=== PATIENT | female | born 1945 | race Caucasian/White ===

== ENCOUNTER 2017-03-10 09:21 | Emergency (ER) | payer MEDICARE, BC ==
[2017-03-10] MEDS ORDERED: SODIUM CHLORIDE 0.9% 500 ML IV STA (10:23)
[2017-03-10] MEDS ORDERED: IPRATROPIUM-ALBUTEROL 3 ML NEB INHALATION STA (10:23)
[2017-03-10] MEDS ORDERED: ONDANSETRON 4 MG/2 ML VIAL IVP STA (10:24)
[2017-03-10] MEDS ORDERED: SODIUM CHLORIDE 0.9% 1,000 ML IV STA (10:24)
[2017-03-10] MEDS ORDERED: FAMOTIDINE 20 MG/2 ML VIAL IV STA (10:24)
[2017-03-10] MEDS ORDERED: ACETAMINOPHEN IV (For NPO) 1,000 MG in EMPTY BAG 1 BAG IVPB ONE (10:25)
--- NOTE | 2017-03-10 10:54 | ED ---
URI HPI - General Chief Complaint: Upper Respiratory Infection Stated Complaint: nausea, cough Time Seen by Provider: 03/10/17 10:07 Source: patient Mode of arrival: wheelchair Limitations: no limitations - History of Present Illness Initial Comments: This 71-year-old white female presents with the complaint of a cough. She apparently has had this for approximately 2 weeks but it seems to be getting worse. She denies any actual fever. She denies any production. She states that her sinuses seem very congested and it feels like she has a postnasal drip. She denies any shortness of breath or chest pain. She also has been vomiting over the past couple of days and has some mild upper abdominal pain. She has not taken any medications for this as of yet. She states that it helps if she goes and a steamy shower and this seems to help her sinuses. She feels very weak. No other complaints or modifying factors. - Related Data Home Medications Medication Instructions Recorded Confirmed Hydrochlorothiazide 12.5 mg PO DAILY 03/10/17 03/10/17 Lisinopril [Prinivil] 10 mg PO DAILY 03/10/17 03/10/17 Multivitamins, Thera [Multivitamin 1 tab PO DAILY 03/10/17 03/10/17 (formulary)] Potassium Chloride ER [K-Dur 10] 10 meq PO DAILY 03/10/17 03/10/17 Pravastatin Sodium [Pravachol] 10 mg PO MOWEFR 03/10/17 03/10/17 cycloSPORINE 0.05% OPHTH SOLN 1 drop BOTH EYES BID 03/10/17 03/10/17 [Restasis] Previous Rx's Medication Instructions Recorded Levofloxacin [Levaquin] 750 mg PO DAILY #7 tab 03/10/17 Ondansetron [Zofran ODT] 8 mg PO Q8HR PRN #12 tab 03/10/17 guaiFENesin-Coden 100-10MG/5ML 10 ml PO Q4HR PRN #250 ml 03/10/17 [Robitussin AC] Allergies Allergy/AdvReac Type Severity Reaction Status Date / Time cephalexin [From Keflex] Allergy Rash/Hives Verified 03/10/17 09:57 Review of Systems ROS Statement: Those systems with pertinent positive or pertinent negative responses have been documented in the HPI. ROS Other: All systems not noted in ROS Statement are negative. Past Medical History Past Medical History: Hyperlipidemia, Hypertension Additional Past Medical History / Comment(s): dry eyes History of Any Multi-Drug Resistant Organisms: None Reported Past Surgical History: Section, Joint Replacement Past Psychological History: Depression Smoking Status: Former smoker Past Alcohol Use History: Rare Past Drug Use History: None Reported General Exam - General Exam Comments Initial Comments: GENERAL: The patient is well nourished and well hydrated. VITAL SIGNS: Heart rate, blood pressure, respiratory rate reviewed as recorded in nurse's notes. EYES: Pupils are round and reactive. Extraocular movements are intact. No conjunctival / lid redness or swelling. ENT: No external evidence of injury, swelling, or ecchymosis. Airway is patent. Throat is clear. NECK: Nontender. No swelling or evidence of injury. No subcutaneous emphysema. Trachea is midline. No thyroid mass. HEART: Regular rate and rhythm. Good peripheral pulses. LUNGS/CHEST: Breath sounds clear and equal bilaterally. No rales, rhonchi, or wheezes. No ecchymosis, subcutaneous emphysema, or tenderness. ABDOMEN: There is mild tenderness to the upper abdomen. No palpable masses or organomegaly. No peritoneal signs. No abdominal wall swelling or ecchymosis. EXTREMITIES: No extremity tenderness. Normal muscle tone and function. No thoracolumbar tenderness. NEUROLOGIC: Sensation is grossly intact. Cranial nerve exam reveals face is symmetrical, tongue is midline, speech is clear. SKIN: No abrasions or ecchymosis is noted. No induration or masses noted. PSYCHIATRIC: Alert and oriented. Appropriate behavior and judgment. Limitations: no limitations Course Vital Signs 03/10/17 03/10/17 03/10/17 09:39 10:41 10:47 Temperature 99.9 F H Pulse Rate 76 76 76 Respiratory 18 Rate Blood Pressure 138/65 O2 Sat by Pulse 96 Oximetry Medical Decision Making - Medical Decision Making The patient was seen and examined. All diagnostics were reviewed. An IV is started and she is hydrated. She received some Zofran for her nausea. She receives a DuoNeb breathing treatment. She denies any relief with the DuoNeb breathing treatment. She had some relief with the Zofran but not complete and is given Reglan IV as well. She is feeling better overall and recheck. The influenza came back positive. Her sodium and chloride are both low. The x-ray showed a possible left lower lobe infiltrate. It is felt that her symptoms primarily are related to influenza. She states that they have been fairly severe for 5 days and it is not felt as though Tamiflu would be beneficial at this time. The possibility of a concomitant bacterial infection is possible as well and she'll be covered with antibiotics. She is offered admission to the hospital but would prefer outpatient treatment. She understands and agrees with the following disposition and leaves in no distress. - Lab Data Result diagrams: 03/10/17 10:40 03/10/17 10:40 Lab Results 03/10/17 03/10/17 03/10/17 Range/Units 10:40 10:40 10:40 WBC 8.6 (3.8-10.6) k/uL RBC 4.80 (3.80-5.40) m/uL Hgb 14.0 (11.4-16.0) gm/dL Hct 40.1 (34.0-46.0) % MCV 83.6 (80.0-100.0) fL MCH 29.1 (25.0-35.0) pg MCHC 34.9 (31.0-37.0) g/dL RDW 12.6 (11.5-15.5) % Plt Count 206 (150-450) k/uL Neutrophils % 83 % Lymphocytes % 10 % Monocytes % 6 % Eosinophils % 0 % Basophils % 0 % Neutrophils # 7.1 (1.3-7.7) k/uL Lymphocytes # 0.9 L (1.0-4.8) k/uL Monocytes # 0.5 (0-1.0) k/uL Eosinophils # 0.0 (0-0.7) k/uL Basophils # 0.0 (0-0.2) k/uL Sodium 125 L (137-145) mmol/L Potassium 3.7 (3.5-5.1) mmol/L Chloride 89 L (98-107) mmol/L Carbon Dioxide 24 (22-30) mmol/L Anion Gap 12 mmol/L BUN 5 L (7-17) mg/dL Creatinine 0.59 (0.52-1.04) mg/dL Est GFR (MDRD) Af Amer >60 (>60 ml/min/1.73 sqM) Est GFR (MDRD) Non-Af >60 (>60 ml/min/1.73 sqM) Glucose 114 H (74-99) mg/dL Calcium 8.6 (8.4-10.2) mg/dL AST 24 (14-36) U/L ALT 28 (9-52) U/L Amylase <30 L (30-110) U/L Lipase 23 (23-300) U/L Influenza Type A RNA Detected H (Not Detectd) Influenza Type B (PCR) Not Detected (Not Detectd) Disposition Clinical Impression: Nausea and vomiting, Sinusitis, Abdominal pain, Influenza A, Hypochloremia, Hyponatremia, Pneumonia Disposition: HOME SELF-CARE Condition: Good Instructions: Influenza (ED), Sinusitis (ED), Abdominal Pain (ED), Dehydration (ED), Acute Nausea and Vomiting (ED), Pneumonia (ED) Additional Instructions: Please drink extra fluids for the next 3 days. Prescriptions: guaiFENesin-Coden 100-10MG/5ML [Robitussin AC] 10 ml PO Q4HR PRN #250 ml PRN Reason: Cough Levofloxacin [Levaquin] 750 mg PO DAILY #7 tab Ondansetron [Zofran ODT] 8 mg PO Q8HR PRN #12 tab PRN Reason: Nausea Referrals: Nonstaff,Physician [Primary Care Provider] - 1-2 days Time of Disposition: 11:57
[2017-03-10 11:03] LABS: ALT 28 U/L (9-52); AST 24 U/L (14-36); Amylase <30 U/L (30-110); Anion Gap 12 mmol/L; Blood Urea Nitrogen 5 mg/dL (7-17); Calcium 8.6 mg/dL (8.4-10.2); Carbon Dioxide 24 mmol/L (22-30); Chloride 89 mmol/L (98-107); Glucose 114 mg/dL (74-99); Lipase 23 U/L (23-300); Potassium 3.7 mmol/L (3.5-5.1); Sodium 125 mmol/L (137-145)
[2017-03-10 11:08] LABS: Basophils % (A) 0 %; Eosinophils % (A) 0 %; HCT 40.1 % (34.0-46.0); Lymphocytes # (A) 0.9 k/uL (1.0-4.8); Lymphocytes % (A) 10 %; MCH 29.1 pg (25.0-35.0); MCHC 34.9 g/dL (31.0-37.0); MCV 83.6 fL (80.0-100.0); Mean Platelet Volume 7.4; Monocytes # (A) 0.5 k/uL (0-1.0); Monocytes % (A) 6 %; Neutrophils # (A) 7.1 k/uL (1.3-7.7); Neutrophils % (A) 83 %; Platelet Count 206 k/uL (150-450); RDW 12.6 % (11.5-15.5); WBC 8.6 k/uL (3.8-10.6)
--- NOTE | 2017-03-10 11:23 | XR ---
EXAMINATION TYPE: XR chest 2V DATE OF EXAM: 03/10/2017 COMPARISON: None HISTORY: 71-year-old female with cough TECHNIQUE: Frontal and lateral views FINDINGS: Heart normal size. Aorta and pulmonary vasculature within normal limits. Mild interstitial prominence has a chronic appearance. There is some patchy peripheral left base opacity is localized posteriorly on the lateral view. No pleural effusion. IMPRESSION: Some patchy left basilar opacity could represent atelectasis or early pneumonia.
--- NOTE | 2017-03-10 11:30 | XR ---
EXAMINATION TYPE: XR abdomen 2V DATE OF EXAM: 03/10/2017 CLINICAL DATA: 71-year-old female abdominal pain, PHH COMPARISON: None FINDINGS: Scoliosis. Lumbar cord are projects over the lower left hemithorax. No evidence for free intraperitoneal air. A few small air-fluid levels in the left upper mid abdomen. Additional small air-fluid levels in the right hemicolon. Scattered colonic gas is present without significant stool burden. No abnormal bowel dilatation. IMPRESSION: Scattered air-fluid levels within the left-sided small bowel loops and within the right hemicolon. Fi ndings suggest ileus or enteritis. No abnormal dilatation to suggest bowel obstruction at this time.
[2017-03-10] MEDS ORDERED: METOCLOPRAMIDE 5 MG/ML 2 ML VIAL IVP STA (11:52)
[2017-03-10 12:16] VITALS: BP 99/56; PULSE 57; RESP 20; TEMP 97
== END 2017-03-10 12:20 | disposition home or self-care (01) ==
LOC: EC 09:21
DX: E87.1 Hypo-osmolality and hyponatremia (principal); E87.8 Other disorders of electrolyte and fluid balance, not elsewhere classified; J32.9 Chronic sinusitis, unspecified; J10.08 Influenza due to other identified influenza virus with other specified pneumonia; E78.5 Hyperlipidemia, unspecified; I10 Essential (primary) hypertension; Z87.891 Personal history of nicotine dependence; Z79.899 Other long term (current) drug therapy; Z88.1 Allergy status to other antibiotic agents; Z86.69 Personal history of other diseases of the nervous system and sense organs
CPT/HCPCS: 36415; 94640; 80048; 82150; 83690; 84450; 84460; 85025; 87040; 87502; 71046; 74019; 99284; 96365; 96375 ×3; J2765; J2405; J0131

== ENCOUNTER → 2023-01-17 | Outpatient (CLI) | payer MEDICARE, BC ==
--- NOTE | 2023-01-30 12:39 | MM ---
Reason for Exam: Screening (asymptomatic). Last mammogram was performed 1 year(s) and 3 month(s) ago. Patient History: Menarche at age 13. First Full-Term at age 34. Late child-bearing (after 30). Postmenopausal. Maternal aunt had breast cancer at or over age 50. Risk Values: Kati 5 year model risk: 2.4%. NCI Lifetime model risk: 4.6%. Prior Study Comparison: 10/01/2019 Bilateral Screening Mammogram, [facility]. 10/02/2020 Bilateral Screening Mammogram, [facility]. 10/09/2021 Bilateral Screening Mammogram, [facility]. Tissue Density: The breast tissue is heterogeneously dense. This may lower the sensitivity of mammography. Findings: Analyzed By CAD. There is no suspicious group of microcalcifications or new suspicious mass in either breast. Overall Assessment: Benign, BI-RAD 2 Management: Screening Mammogram of both breasts in 1 year. . Patient should continue monthly self-breast exams. A clinical breast exam by your physician is recommended on an annual basis. This exam should not preclude additional follow-up of suspicious palpable abnormalities. Note on Kati scores and lifetime risk: 1. A Kati score greater than 3% is considered moderate risk. If this is the case, consider specialist referral to assess eligibility for a risk reducing agent. 2. If overall lifetime risk for the development of breast cancer is 20% or higher, the patient may qualify for future screening with alternating mammogram and breast MRI. Electronically signed and approved by: Catalino Burnett M.D. Radiologis
== END | disposition home or self-care (01) ==
LOC: RADMAMWWP 14:45
PROVIDERS: ATTEND Family Medicine
DX: Z12.31 Encounter for screening mammogram for malignant neoplasm of breast (principal); Z78.0 Asymptomatic menopausal state; Z80.3 Family history of malignant neoplasm of breast
CPT/HCPCS: 77063; 77067

== ENCOUNTER → 2023-05-09 | Day surgery (SDC) | payer MEDICARE, BC ==
[~2023-05-09] MED LIST: LACTATED RINGERS 1,000 ML IV SCH; PROPOFOL 10 MG/ML 20 ML VIAL IV ONE
[2023-05-09] MEDS: LACTATED RINGERS 1,000 ML IV ONE (06:56)
[2023-05-09 07:23] VITALS: TEMP 97.4
--- NOTE | 2023-05-09 07:46 | OP ---
OPERATIVE REPORT DATE OF SERVICE : 05/09/2023 PROCEDURE: Bone marrow aspirate and biopsy. DESCRIPTION OF PROCEDURE: After obtaining consent from the patient, the procedure was performed in the endoscopy suite under general sedation performed by anesthesia team. The patient was put on the left lateral decubital position. The right posterior iliac crest was localized. Skin was prepped with ChloraPrep. All sterile procedures followed. 2% Xylocaine was used for local anesthetic. A Jamshidi needle was inserted. 15 mL of aspirate and above 1 cm core biopsy obtained without any difficulties. Pressure applied afterwards. There was negligible blood loss. Patient tolerated procedure very well without any immediate complications. MMODL / IJN: [id number] /
[2023-05-09 07:47] LABS: HCT 45.6 % (34.0-46.0); HGB 15.1 gm/dL (11.4-16.0); MCHC 33.2 g/dL (31.0-37.0); MCV 90.4 fL (80.0-100.0); Mean Platelet Volume 8.2; Platelet Count 594 k/uL (150-450); RBC 5.05 m/uL (3.80-5.40); RDW 13.9 % (11.5-15.5); Reticulocyte % 1.8 % (0.5-2.0); WBC 6.7 k/uL (3.8-10.6)
[2023-05-09 07:58] VITALS: BP 102/65; PULSE 48; RESP 14
[2023-05-09 08:34] LABS: Basophils # (M) 0.13 k/uL (0-0.2); Eosinophils # (M) 0.07 k/uL (0-0.7); Lymphocytes # (M) 1.61 k/uL (1.0-4.8); Monocytes # (M) 0.54 k/uL (0-1.0); Neutrophils # (M) 4.42 k/uL (1.3-7.7); Neutrophils % (M) 66 %; Nucleated Red Blood Cells 0 /100 WBC (0-0); Total Cells Counted 200
== END ==
LOC: OR 06:00
PROVIDERS: ATTEND Internal Medicine Hematology & Oncology
DX: D47.3 Essential (hemorrhagic) thrombocythemia (principal)
CPT/HCPCS: 85025; 85045; 38222; J2704

== ENCOUNTER → 2023-11-12 | Outpatient (CLI) | payer MEDICARE, BC ==
--- NOTE | 2023-11-12 21:24 | BD ---
EXAMINATION TYPE: Axial Bone Density DATE OF EXAM: 11/12/2023 CLINICAL HISTORY: 78 years old Female. ICD-10 CODE: M85.80 OT DISRD OF BONE DENSITY AND STRUCTURE, UN Height: 65 Weight: 235.2 FRAX RISK QUESTIONS: Alcohol (3 or more units per day): no Family History (Parent hip fracture): no Glucocorticoids (More than 3mos): no (Ex: prednisone, prednisolone, methylprednisolone, dexamethasone, and hydrocortisone). History of Fracture in Adulthood: yes Secondary Osteoporosis: 1. Type 1 Diabetes: no 2. Hyperthyroidism: no 3. Menopause before 45: no 4. Malnutrition: no 5. Chronic liver disease: no Rheumatoid Arthritis: no Current Tobacco Use: no RISK FACTORS HISTORY OF: Surgery to Spine/Hip(right/left)/Wrist (right/left): no EXAM MEASUREMENTS: Bone mineral densitometry was performed using the Ushi System. Bone mineral density as measured about the Lumbar spine is: ----- L1-L4(G/cm2): 1.167 T Score Values are as follows: ----- L1: -0.3 ----- L2: 0.0 ----- L3: 0.0 ----- L4: -0.3 ----- L1-L4: -0.1 Z Score Values are as follows: ----- L1: 0.3 ----- L2: 0.6 ----- L3: 0.6 ----- L4: 0.3 ----- L1-L4: 0.5 Bone mineral density : baseline Bone mineral density about the R hip (g/cm2): 0.943 Bone mineral density about the L hip (g/cm2): 0.899 T Score values are as follows: -----R Neck: -1.2 -----L Neck: -1.5 -----R Total: -0.5 -----L Total: -0.9 Z Score values are as follows: -----R Neck: 0.1 -----L Neck: -0.2 -----R Total: 0.6 -----L Total: 0.2 Bone mineral density : baseline FRAX%s: The graph provided illustrates a 16.3% chance for a major osteoporotic fx and a 3.2% chance f or the hips probability for fx in 10 years time. IMPRESSION: Osteopenia (T Score between -2.5 and -1). There is slightly increased risk of fracture and the patient may be considered for treatment. Re-Screen 2-5 years. NOTE: T-SCORE=SD OF THE YOUNG ADULT MEAN. [facility], , 11/12/2023 9:22 PM
== END | disposition home or self-care (01) ==
LOC: RADBDWWP 15:13
PROVIDERS: ATTEND Family Medicine
DX: M85.89 Other specified disorders of bone density and structure, multiple sites (principal)
CPT/HCPCS: 77080

== ENCOUNTER → 2024-03-25 | Outpatient (CLI) | payer MEDICARE, BC ==
[2024-03-25 10:34] VITALS: BP 119/75; PULSE 60; RESP 18; TEMP 97.9
[2024-03-25] MEDS: DENOSUMAB 60 MG/ML 1 ML SYRINGE SQ NR (10:35)
== END ==
LOC: PROCWHC3 10:22
PROVIDERS: ATTEND Family Medicine
DX: M85.80 Other specified disorders of bone density and structure, unspecified site (principal)
CPT/HCPCS: 96372; J0897

== ENCOUNTER → 2024-06-11 | Outpatient (CLI) | payer MEDICARE, BC ==
--- NOTE | 2024-07-06 12:34 | EST ---
EXERCISE STRESS EVENT MONITOR REPORT This is a 12-day event monitor. Available rhythm strips were reviewed. Predominant rhythm appears to be sinus with variable heart rate and sinus arrhythmia. There is a 14-beat run of wide QRS tachycardia, probably ventricular, which was recorded on auto trigger. No symptoms reported. Rare isolated PVCs and sinus mechanism were the other rhythm strips. FINAL IMPRESSION: Predominant rhythm is sinus with 114-beat run of wide QRS tachycardia recorded on auto trigger, no symptoms and probably ventricular tachycardia. MMODL / IJN: [id number] /
== END | disposition home or self-care (01) ==
LOC: RADECHMAIN 13:51
PROVIDERS: ATTEND Family Medicine
DX: I49.3 Ventricular premature depolarization (principal); R00.2 Palpitations
CPT/HCPCS: 93270

== ENCOUNTER → 2024-09-22 | Outpatient (CLI) | payer MEDICARE, BC ==
[2024-09-22 14:04] VITALS: BP 138/81; PULSE 69; RESP 16; TEMP 97.8
[2024-09-22] MEDS: DENOSUMAB 60 MG/ML 1 ML SYRINGE SQ NR (14:04)
== END ==
LOC: PROCWHC3 13:52
PROVIDERS: ATTEND Family Medicine
DX: M85.80 Other specified disorders of bone density and structure, unspecified site (principal)
CPT/HCPCS: 96372; J0897